=== PATIENT | male | born 1960 | race Caucasian/White ===

== ENCOUNTER 2020-09-30 13:52 | Emergency (ER) | payer OTHER, BC ==
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
[2020-09-30] MEDS ORDERED: Lactated Ringers 500 ML IV ONE (14:29)
[2020-09-30] MEDS ORDERED: Lactated Ringers 1,000 ML IV SCH (14:30)
[2020-09-30] MEDS ORDERED: Diphtheria,Pertussis(Acell),Tetanus Vaccine 0.5 ML Syringe IM ONE (15:14)
[2020-09-30] MEDS ORDERED: Lidocaine 1% 10 ML MDV INJECT ONE (15:14)
[2020-09-30] MEDS ORDERED: Iopamidol 612 MG/ML 100 ML Bottle IVPUSH ONE (16:48)
[2020-09-30] MEDS ORDERED: Sodium Chloride 0.9% 10 ML Syringe FLUSH SCH (17:00)
[2020-09-30] MEDS ORDERED: Lidocaine 1% 10 ML MDV ONE (17:29)
[2020-09-30] MEDS ORDERED: Ondansetron 4 MG/2 ML SDV ONE (17:49)
[2020-09-30] MEDS ORDERED: Ondansetron 4 MG/2 ML SDV IVPUSH ONE (18:21)
--- NOTE | 2020-10-02 08:00 | CT ---
CT chest Technique: Multiple axial sections were obtained from above the lung apices inferiorly through the lung bases. Minimal contrast is noted intravenously. Reconstructed coronal and sagittal images were obtained. Comparison: No prior chest imaging is available. Findings: No pericardial thickening is seen. Thoracic aorta shows no aneurysm. Mediastinum and hilar regions show no adenopathy. No axillary adenopathy is noted. Lung window shows no acute parenchymal change. Small 4 mm nodules are seen within the chest. No additional nodule or mass is seen. No pleural effusion or pneumothorax is seen. Bone window settings were reviewed which show no acute osseous finding. Impression: 1. Small 4 mm nodules. If patient is a smoker, recommend follow-up noncontrast chest CT study in one year. If patient is not a smoker, these can be ignored. 2. Nothing acute is appreciated on CT study of the chest. Diagnostic code #3 I agree with preliminary report from [facility], finalized on 09/30/20, 4:[address] abdomen and pelvis Technique: Multiple axial sections were obtained from above the dome of the diaphragm inferiorly through the pubic symphysis. Minimal contrast is seen. Delayed images were also obtained through the pelvis. Comparison: No prior CT abdomen and pelvis study. Findings: Spleen measures about 12.9 cm which is at the upper limits of normal. Liver shows no focal abnormality. Cyst is noted within the lower right kidney. This cyst within the kidney measures 7.0 cm. No additional abnormalities are seen within the kidneys. Pancreas shows no discrete abnormality. Gallbladder contains no calcified gallstones. Adrenal glands show no nodule or mass. Abdominal aorta shows no aneurysm. No retroperitoneal adenopathy is seen. Slight vascular calcification is noted. No inflammatory change is seen around the tip of the cecum. No pelvic mass or adenopathy is appreciated. Bone window settings were reviewed which show scattered degenerative change within the lumbar spine with several areas of vacuum disc phenomena. No acute osseous finding is appreciated. Delayed images show contrast within portions of the ureters and within the bladder. Impression: 1. Findings as described above. 2. Nothing acute is seen on CT study of the abdomen and pelvis. Diagnostic code #2 I agree with preliminary report from [facility], finalized on 09/30/20, 4:50 PM CDT
--- NOTE | 2020-10-02 08:03 | CT ---
CT cervical spine Technique: Multiple axial sections were obtained from above C1 inferiorly through the posterior T2-3 disc. Reconstructed coronal and sagittal images were obtained. Findings: Diffuse disc space narrowing is noted throughout the cervical spine as well as at C7-T1. Disc space narrowing is most prominent at C5-6 and C6-7. Scattered endplate osteophytes are seen which are most prominent at C5-6 and C6-7. Scattered degenerative apophyseal change is noted. Scattered areas of neural foraminal narrowing appears to be present. Slight scoliosis is noted. Degenerative change is scattered throughout the uncovertebral joints. Degenerative change is also noted between the anterior arch of C1 and the dens. No acute fracture or acute subluxation is appreciated. Impression: 1. Degenerative change as noted above. 2. No acute fracture or acute subluxation is appreciated. Diagnostic code #2 I agree with preliminary report from [facility], finalized on 09/30/20, 4:44 PM CDT
--- NOTE | 2020-10-02 08:03 | CT ---
Head CT Technique: Multiple axial sections through the brain were obtained. Intravenous contrast was not utilized. Reconstructed coronal and sagittal images were obtained. Comparison: No prior intracranial imaging is available. Findings: Ventricles along with basal cisterns and sulci over the convexities appear within normal limits for the patient's age. No abnormal parenchymal densities are seen. No evidence of intracranial hemorrhage. No midline shift or mass-effect is seen. Bone window settings were reviewed. Visualized paranasal sinuses and mastoid sinuses show nothing acute. No acute calvarial abnormality is appreciated. Impression: 1. Nothing acute is identified on noncontrast head CT study. Diagnostic code #1 I agree with preliminary report from [facility], finalized on 09/30/20, 4:45 PM CDT
== END 2020-09-30 19:49 | disposition home or self-care (01) ==
LOC: JD.ED 13:52
DX: S01.511A Laceration without foreign body of lip, initial encounter (principal); S01.512A Laceration without foreign body of oral cavity, initial encounter; Z88.5 Allergy status to narcotic agent; Z88.0 Allergy status to penicillin; Z79.82 Long term (current) use of aspirin; Z23 Encounter for immunization; V29.40XA Motorcycle driver injured in collision with unspecified motor vehicles in traffic accident, initial encounter; Y92.410 Unspecified street and highway as the place of occurrence of the external cause
CPT/HCPCS: 12014; 36415; 70450; 71260; 72125; 74177; 80053; 81001; 85025; 85610; 85730; 90471; 90715; 96374; 99285; J2405; J7120; Q9967; 13132; 99284